=== PATIENT | male | born 1960 | race Caucasian/White ===

== ENCOUNTER → 2016-04-11 | Outpatient (CLI) | payer BC ==
[~2016-04-11] MED LIST: AMLO-114 PO; HYDR-5688 PO; HYG/25 PO; LISI40TA PO
--- NOTE | 2016-04-11 09:16 | DIAGNOSTIC IMAGING REPORT ---
RIGHT INGUINAL ULTRASOUND CLINICAL HISTORY: Right inguinal pain COMPARISON STUDY: No previous studies for comparison. FINDINGS: There is a partially reducible fat-containing right inguinal hernia. IMPRESSION: Partially reducible fat-containing right inguinal hernia. Electronically signed by: Héctor Rossi M.D. 04/11/2016 9:14 AM Dictated Date/Time: 04/11/2016 9:13 AM
--- NOTE | 2016-04-11 09:19 | DIAGNOSTIC IMAGING REPORT ---
ULTRASOUND TESTES AND SCROTUM CLINICAL HISTORY: Right scrotal pain. COMPARISON STUDY: No priors. TECHNIQUE: Real-time, grayscale, and color Doppler sonography of the testes and scrotum is performed. Images are reviewed in the transverse and longitudinal planes. FINDINGS: The testes are normal in size and homogeneous in echotexture. The right testis measures 4.2 x 2.0 x 2.8 cm and the left testis measures 3.9 x 2.1 x 2.8 cm. No intratesticular mass is seen. There are 2 tiny hypoechoic foci identified in the left testis measuring up to 3 mm. Testicular blood flow is normal and symmetric. Normal Doppler waveforms are identified in both testes. The epididymal heads are normal in appearance. The right epididymal head measures 1.1 cm in length and the left epididymal head measures 1.0 cm in length. A 5 mm right epididymal head cyst is incidentally noted, and a 6 mm epididymal head cyst is incidentally noted on the left. There are small bilateral hydroceles. No varicocele is seen. Small scrotal pearls are seen bilaterally. IMPRESSION: 1. No acute sonographic abnormality is identified in the scrotum. 2. There are small bilateral hydroceles. 3. No testicular mass is clearly identified. There are 2 indeterminant hypoechoic foci identified in the left testis measuring 3 mm. These are low suspicion, and a precautionary six-month follow-up ultrasound is recommended for reassessment. Electronically signed by: Jose Nuñez M.D. 04/11/2016 9:17 AM Dictated Date/Time: 04/11/2016 9:14 AM
== END | disposition home or self-care (01) ==
LOC: C.ULTR 08:47
PROVIDERS: ATTEND Family Medicine
DX: R10.31 Right lower quadrant pain (principal); K40.90 Unilateral inguinal hernia, without obstruction or gangrene, not specified as recurrent; N43.3 Hydrocele, unspecified; N50.9 Disorder of male genital organs, unspecified

== ENCOUNTER → 2016-04-24 | Day surgery (SDC) | payer BC ==
[2016-04-19 08:41] VITALS: Ht 181.6 cm; Wt 84.5 kg
[~2016-04-24] VITALS: Ht 181.6 cm; Wt 84.5 kg
[~2016-04-24] MED LIST changes: +ATROPINE SULFATE 0.1 MG/ML 5ML SYR IV PRN; +BUPIVACAINE/EPINEPHRINE 0.5% MPF 1:200,000 30 ML VIAL ONE; +CEFAZOLIN 2000 MG/60 ML D5W IV SCH; +DEXAMETHASONE SOD INJ 4 MG/ML VIAL IV PRN; +DEXAMETHASONE SOD INJ 4 MG/ML VIAL ONE; +EpHEDrine SULFATE INJ 50 MG/ML AMP IV PRN; +FENTANYL CITRATE INJ 50 MCG/1 ML 2 ML VIAL IV PRN; +FENTANYL CITRATE INJ 50 MCG/1 ML 2 ML VIAL ONE; +HEPARIN SOD 5000 UNIT/0.5 ML CARP SC SCH; +HYDROCODONE/ACETAMOPHEN 5/325MG TAB PO PRN; +IBUPROFEN 600 MG TAB PO PRN; +KETOROLAC TROMETHAMINE 30 MG/ML VIAL IV. PRN; +LABETALOL HCL IV 5 MG/ML 20ML IV PRN; +LACTATED RINGER'S 1000ML 1,000 ML IV SCH; +LIDOCAINE HCL 2% 2 ML VIAL (20MG/ML) ONE; +MEPERIDINE HCL 25 MG/ML CARP ONE; +METOCLOPRAMIDE HCL INJ 5 MG/ML 2 ML VIAL IV PRN; +MIDAZOLAM HCL 1 MG/ML 2ML VIAL ONE; +MoRPHine SULFATE 10 MG/ML CARP/VIAL IV PRN; +MoRPHine SULFATE 2 MG/ML CARP IV PRN; +MoRPHine SULFATE 4 MG/ML 1 ML CARP\\VIAL IV PRN; +ONDANSETRON INJ 2 MG/ML 2 ML VIAL IV PRN; +ONDANSETRON INJ 2 MG/ML 2 ML VIAL ONE; +PHENYLEPHRINE 100MCG/ML 5ML SYR IV PRN; +PROPOFOL IV EMULSION 10 MG/ML 20 ML VIAL IV ONE; +SODIUM CHLORIDE 0.9% 1000ML 1,000 ML IV SCH
--- NOTE | 2016-04-24 08:29 | History & Physical Bridge Note ---
H&P Re-Evaluation Bridge Note: I have examined the patient, reviewed the History & Physical and in the interval since the performance of the History & Physical I have noted the following changes of clinical significance: No changes noted
--- NOTE | 2016-04-24 09:57 | [facility] Operative Report ---
Operative Report Operative Date Apr 24, 2016. Pre-Operative Diagnosis Right inguinal hernia Post-Operative Diagnosis right direct and indirect inguinal hernias Surgeon Dr Culp Rock Loader Surgeon(s) 0 Estimated Blood Loss 10 ML Findings right direct/indirect inguinal hernias Specimens 0 Anesthesia LMA Complication(s) None Disposition Recovery Room / PACU I attest to the content of the Intraoperative Record and any orders documented therein. Any exceptions are noted below.
--- NOTE | 2016-04-24 10:31 | Anesthesia Progress Nt - [facility] ---
Anesthesia Post Op Note Date & Time Apr 24, 2016 at 10:31 Vital Signs Pain Intensity: 6.0 Vital Signs Past 12 Hours Date Time Temp Pulse Resp B/P Pulse Ox O2 Delivery O2 Flow Rate FiO2 04/24/16 10:26 74 14 95 04/24/16 10:26 74 14 04/24/16 10:23 119/83 04/24/16 10:21 76 15 04/24/16 10:21 74 15 96 04/24/16 10:18 133/85 04/24/16 10:16 78 15 04/24/16 10:16 78 15 100 04/24/16 10:13 143/93 04/24/16 10:11 79 16 100 04/24/16 10:11 78 16 04/24/16 10:08 135/93 04/24/16 10:06 82 26 100 04/24/16 10:06 82 26 04/24/16 10:03 136/93 04/24/16 10:01 74 18 100 04/24/16 10:01 75 18 04/24/16 10:00 73 22 04/24/16 10:00 72 22 100 04/24/16 09:58 129/88 04/24/16 09:55 70 17 04/24/16 09:55 70 17 100 04/24/16 09:53 121/82 04/24/16 09:50 68 15 04/24/16 09:50 68 15 100 04/24/16 09:49 70 16 04/24/16 09:49 70 16 100 04/24/16 09:48 120/81 04/24/16 09:44 67 14 04/24/16 09:44 69 14 99 04/24/16 09:43 107/75 04/24/16 09:39 37.0 76 16 130/80 100 Diffusion Mask 6 04/24/16 09:39 71 13 100 04/24/16 09:39 71 13 04/24/16 07:02 36.7 92 20 109/87 97 Room Air Notes Mental Status: alert / awake / arousable, participated in evaluation Pt Amnestic to Procedure: Yes Nausea / Vomiting: adequately controlled Pain: adequately controlled Airway Patency, RR, SpO2: stable & adequate BP & HR: stable & adequate Hydration State: stable & adequate Anesthetic Complications: no major complications apparent
[2016-04-24 10:50] VITALS: TEMP 36.7
--- NOTE | 2016-04-24 10:55 | OPERATIVE REPORT ---
DATE OF OPERATION: 04/24/2016 PREOPERATIVE DIAGNOSIS: Right inguinal hernia. POSTOPERATIVE DIAGNOSIS: Indirect and direct right inguinal hernias. PROCEDURES: Open right inguinal hernia repair with mesh. SURGEON: Dr. Culp. ESTIMATED BLOOD LOSS: Approximately 10 mL. COMPLICATIONS: No immediate. ANESTHESIA: General with laryngeal mask airway. OPERATIVE NOTE: After informed consent was obtained, the patient was taken to the operating suite and placed in supine position. After successful placement of laryngeal mask airway, a Yoo catheter was placed and the right groin was shaved and sterilely prepped and draped in the usual fashion. An inguinal incision was made with a 10 blade scalpel and carried down through the soft tissue using electrocautery. The external oblique aponeurosis was skeletonized. An incision was made in it with a fresh 15 blade scalpel and it was extended inferiorly through the external ring, as well as for several centimeters proximally with the Metzenbaum scissor. Once in the inguinal canal, I was able to bluntly dissect the cord and cord structures free from surrounding anatomy. I was able to take a blunt finger and elevate the cord structures off the pubic bone and place a Bryce drain around it. Once in the inguinal canal I was able to readily identify a moderate sized direct defect coming through the floor of the canal. We did examine the cord and cord structures and there was also a moderate sized indirect hernia sac. I was able to tease it away from the cord structures using primarily blunt dissection with a small amount of electrocautery. Once we had it down to its neck, we were able to easily reduce it back into the abdominal cavity. We thoroughly irrigated the wound. There was adequate hemostasis. We used a piece of polypropylene mesh as an onlay. We secured it distally into Pravin's ligament, laterally along the shelving portion of Poupart's ligament, and medially along the midline abdominal wall musculature. The "arms" of the mesh were wrapped around behind the cord and cord structures, and again secured to underlying muscle. All the sutures placed to secure the mesh were 0 Ethibond. At the end of procedure the mesh laid nice and tension free and was not impinging on the cord structures. A final irrigation was performed. I did inject some Marcaine around the edges of the mesh for postoperative analgesia. I then closed the external oblique aponeurosis with 2-0 Vicryl in a running fashion. Soft tissue was irrigated and closed using 3-0 Vicryl and 4-0 Monocryl for the skin. Dermabond glue was used as a dressing. We did inject some additional Marcaine around the incision for postoperative analgesia. The patient was awakened, extubated, and transferred to recovery in stable condition. I attest to the content of the Intraoperative Record and any orders documented therein. Any exceptio ns are noted below.
[2016-04-24 11:06] VITALS: BP 110/72; PULSE 57; O2SAT 97
== END | disposition home or self-care (01) ==
LOC: X.SURG 06:49
PROVIDERS: ATTEND Surgery
DX: K40.90 Unilateral inguinal hernia, without obstruction or gangrene, not specified as recurrent (principal); I10 Essential (primary) hypertension; E78.00 Pure hypercholesterolemia, unspecified